=== PATIENT | male | born 1950 | race African-American/Black ===

== ENCOUNTER 2017-10-15 04:09 | Observation (INO) | payer OTHER ==
[2017-10-15] MEDS ORDERED: LORazepam 2 MG/ML SDV VIAL ONE (04:49)
[2017-10-15 04:53] VITALS: BMI 24.1
--- NOTE | 2017-10-15 04:54 | PDOC ---
History of Present Illness - History of Present Illness Initial Comments: 10/15/17 04:54 66 yo M with h/o recent CVA 1 month [employer] who arrival who presents with AMS. at bedside states that pt. has been behaving differently and recently seen at [facility] and told he had a stroke. Patient was advised to begin medication and have repeat CT HEAD, but has been non compliant. Patient currently non responsive and non verbal. endorses pt. tobacco use 1/2-1 ppd for past 30 + years. Denies alcohol intake. PCP Dr. Poncho Yeh <Johnnie Samuel - Last Filed: 10/15/17 05:01> <Sheri Champion - Last Filed: 10/15/17 05:16> - General Chief Complaint: Altered Mental Status Stated Complaint: AMS Time Seen by Provider: 10/15/17 04:34 Past History - Past Medical History Anemia: No Asthma: Yes (Pt is Albuterol IH) Cancer: No Cardiac Disorders: No COPD: No Diabetes: No GI Disorders: No Disorders: No HTN: No Hypercholesterolemia: No Kidney Stones: Yes (Pt had Left Kidney Surgery) Liver Disease: No Seizures: No Thyroid Disease: No - Surgical History Abdominal Surgery: No Appendectomy: No Cardiac Surgery: No Cholecystectomy: No Lung Surgery: No Neurologic Surgery: No Orthopedic Surgery: No - Reproductive History Testicular Surgery: No - Suicide/Smoking/Psychosocial Hx Smoking History: Current every day smoker Have you smoked in the past 12 months: Yes Number of Cigarettes Smoked Daily: 10 Information on smoking cessation initiated: No 'Breaking Loose' booklet given: 04/17/12 Hx Alcohol Use: No Drug/Substance Use Hx: No Substance Use Type: Alcohol, Cocaine Hx Substance Use Treatment: Yes <Johnnie Samuel - Last Filed: 10/15/17 05:01> <Sheri Champion - Last Filed: 10/15/17 05:16> - Past Medical History Allergies/Adverse Reactions: Allergies Allergy/AdvReac Type Severity Reaction Status Date / Time Penicillins Allergy Intermediate Itching Verified 10/15/17 04:43 Home Medications: Ambulatory Orders Albuterol Sulfate Inhaler - [Ventolin Hfa *Inhaler*] 1 - 2 inh IH QID PRN Citalopram Hydrobromide [Celexa] 20 mg PO DAILY 04/17/12 Quetiapine Fumarate [SEROquel] 50 mg PO BID 04/17/12 Risperidone [Risperdal] 1 mg PO BID 04/17/12 Review of Systems - Review of Systems Comments:: 10/15/17 04:54 GENERAL/CONSTITUTIONAL: No fever or chills. No weakness. HEAD, EYES, EARS, NOSE AND THROAT: No change in vision. No ear pain or discharge. No sore throat.- CARDIOVASCULAR: No chest pain or shortness of breath RESPIRATORY: No cough, wheezing, or hemoptysis. GASTROINTESTINAL: No nausea, vomiting, diarrhea or constipation. GENITOURINARY: No dysuria, frequency, or change in urination. MUSCULOSKELETAL: No joint or muscle swelling or pain. No neck or back pain. SKIN: No rash NEUROLOGIC: No headache, vertigo, loss of consciousness, or change in strength/ sensation. ENDOCRINE: No increased thirst. No abnormal weight change HEMATOLOGIC/LYMPHATIC: No anemia, easy bleeding, or history of blood clots. ALLERGIC/IMMUNOLOGIC: No hives or skin allergy. <Johnnie Samuel - Last Filed: 10/15/17 05:01> *Physical Exam - Vital Signs Last Vital Signs Temp Pulse Resp BP Pulse Ox 98.7 F 83 18 106/72 96 10/15/17 04:09 10/15/17 04:09 10/15/17 04:09 10/15/17 04:09 10/15/17 04:09 - Physical Exam Comments: 10/15/17 04:54 GENERAL: Awake, alert, and fully oriented, in no acute distress HEAD: No signs of trauma, normocephalic, atraumatic EYES: PERRLA, EOMI, sclera anicteric, conjunctiva clear ENT: Auricles normal inspection, hearing grossly normal, nares patent, oropharynx clear without exudates. Moist mucosa NECK: Normal ROM, supple, no lymphadenopathy, JVD, or masses LUNGS: No distress, speaks full sentences, clear to auscultation bilaterally HEART: Regular rate and rhythm, normal S1 and S2, no murmurs, rubs or gallops, peripheral pulses normal and equal bilaterally. ABDOMEN: Soft, nontender, normoactive bowel sounds. No guarding, no rebound. No masses EXTREMITIES : Normal inspection, Normal range of motion, no edema. No clubbing or cyanosis. NEUROLOGICAL: Cranial nerves II through XII grossly intact. Normal speech, normal gait, no focal sensorimotor deficits SKIN: Warm, Dry, normal turgor, no rashes or lesions noted. <Johnnie Samuel - Last Filed: 10/15/17 05:01> - Vital Signs Last Vital Signs Temp Pulse Resp BP Pulse Ox 98.7 F 83 18 106/72 96 10/15/17 04:09 10/15/17 04:09 10/15/17 04:09 10/15/17 04:09 10/15/17 04:09 <Sheri Champion - Last Filed: 10/15/17 05:16> ED Treatment Course - RADIOLOGY Radiology Studies Ordered: Category Date Time Status HEAD CT (STROKE) [CT] Stat CT Scan 10/15/17 04:17 Taken CHEST X-RAY PORTABLE* [RAD] Stat Radiology 10/15/17 05:12 Ordered <Sheri Champion - Last Filed: 10/15/17 05:16> Medical Decision Making - Medical Decision Making 10/15/17 05:16 Patient Name: MARK GIRON THIS IS A PRELIMINARY REPORT FROM [facility] DATE OF SERVICE: 2017-10-15 04:24:06 IMAGES: 228 EXAM: CT HEAD HISTORY: Altered mental status COMPARISON: None. FINDINGS: Brain parenchyma is normal in attenuation with no mass or hematoma. There is no midline shift. Zambrano and white matter differentiation is normal. There is some focal encephalomalacia in the left temporal lobe suggesting an old infarction Ventricles are normal. Sulci and extra-axial CSF spaces are normal. Intracranial vascular structures are normal in attenuation. There is no calvarial fracture. Paranasal sinuses are normally aerated. Sex: M Study Description: CT HEAD Modality: CT Location: [facility] Referring Physician: JOSE M LIN IMPRESSION: Encephalomalacia in the left temporal lobe suggesting old infarction THIS DOCUMENT HAS BEEN ELECTRONICALLY SIGNED <Sheri Champion - Last Filed: 10/15/17 05:16> *DC/Admit/Observation/Transfer <Johnnie Samuel - Last Filed: 10/15/17 05:01> <Sheri Champion - Last Filed: 10/15/17 05:16> - Referrals Referrals: Poncho Yeh [Primary Care Provider] - - Patient Instructions - Post Discharge Activity
[2017-10-15] MEDS ORDERED: diazePAM ACUDIAL 5-7.5-10 MG 1 EACH KIT RC ONE (05:00)
[2017-10-15] MEDS ORDERED: SODIUM CHLORIDE 0.9% 500 ML INFUS.BAG IV ONE (05:12)
--- NOTE | 2017-10-15 05:23 | PDOC ---
Attending Attestation - Resident Resident Name: Johnnie Samuel - ED Attending Attestation I have performed the following: I have examined & evaluated the patient, The case was reviewed & discussed with the resident, I agree w/resident's findings & plan - HPI HPI: 10/15/17 05:19 Pt comes with AMS; states that he has had a stroke in the past. 10/15/17 05:52 Pt's states that pt has a hx of drug abuse and mental illness. 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 Pt was not properly dressed for the sub- zero temps. states that she thinks he may have caught pneumonia. - Physicial Exam PE: 10/15/17 05:20 Pt began seizure in the ER after returning from CT scanner. (Head CT old findings only) Pt has a hx of seizure but also a hx of cocaine use. 10/15/17 05:53 Pt is sedated. He does open his eyes and he is able to respond somewhat. - Medical Decision Making 10/15/17 05:21 Pt AMS; seizure; will be admitted once labs are back. 10/15/17 06:59 Pt is more awake at this time. He is answering questions and following commmands. He recognizes his and speaks to her. Pt;s labs are coming normal, except for lactic acid of 13.5 which likely reflects the seizure that he had. Other chemistries were hemolyzed and we redrew and sent them. Day ER team will follow labs and admit patient to the hosptalist for AMS and seizure activity. 10/15/17 07:01
--- NOTE | 2017-10-15 05:36 | PDOC ---
NIH Stroke Scale - Last Known Well Date/Time & Onset Date Last Known Well: 10/14/17 Time Last Known Well: 18:00 - Initial Evaluation Level of consciousness: Not alert, but arousable with minimal stimulation Ask patient the month and their age: Answers both correctly Ask patient to open & close eyes; make fist and let go: Obeys both correctly Best gaze (horizontal eye movement): Normal Visual field testing: No visual field loss Facial paresis (Show teeth/raise eyebrows/close eyes tight): Normal symmetrical movement Motor Function: Left Arm: Normal Motor Function: Right Arm: Normal (extends arm 90 (or 45) degrees for 10 seconds without drift Motor Function: Left Leg: Normal (extends leg 30 degrees for 5 seconds without drift) Motor Function: Right Leg: Normal (extends leg 30 degrees for 5 seconds without drift) Limb Ataxia: Untestable (Joint fused or limb amputated), explain: Sensory(Use pinprick test arms,legs,trunk,face/side to side): Severe to total sensory loss Best language (Describe picture, name items, read sentences): No Aphasia Dysarthria (read several words): Mild to moderate slurring of words (pt given ativan for seizure) Extinction and Inattention: No abnormality - Total Score NIH Stroke Scale Score: 4
[2017-10-15 05:42] LABS: EOSINOPHIL 4.7 % (0-4.5); MCH 31.6 pg (25.7-33.7); MCHC 32.5 g/dl (32.0-35.9); MEAN CELL VOLUME 97.2 fl (80-96); MEAN PLT VOLUME 9.3 fl (7.5-11.1); NEUTROPHILS 43.6 % (42.8-82.8); PLATELET COUNT 223 K/MM3 (134-434); RDW 15.4 % (11.9-15.9)
[2017-10-15 05:52] LABS: URINE APPEARANCE SLCLOUDY; URINE BILIRUBIN NEGATIVE (NEGATIVE); URINE BLOOD 1+ (NEGATIVE); URINE COLOR LTYELLOW; URINE GLUCOSE (UA) NEGATIVE (NEGATIVE); URINE KETONE NEGATIVE (NEGATIVE); URINE LEUK ESTERASE NEGATIVE (NEGATIVE); URINE NITRITE NEGATIVE (NEGATIVE); URINE UROBILINOGEN NEGATIVE mg/dL (0.2-1.0)
[2017-10-15 06:00] LABS: URINE MARIJUANA THC NEGATIVE ng/ml (CUTOFF=50)
[2017-10-15 06:02] LABS: URINE PROTEIN 1+ (NEGATIVE)
[2017-10-15 06:03] LABS: URINE HYALINE CAST 4 /lpf; URINE MUCUS RARE; URINE RBC 19 /hpf (0-3); URINE WBC 3 /hpf (3-5)
[2017-10-15 06:57] LABS: INR 0.99 (0.82-1.09); PROTHROMBIN TIME (PATIENT) 11.2 SEC (9.98-11.88)
[2017-10-15] MEDS ORDERED: SODIUM CHLORIDE 0.9% 1000 ML INFUS.BAG IV ONE (07:48)
[2017-10-15 08:17] LABS: ALBUMIN 3.5 g/dl (3.4-5.0); ANION GAP 9 (8-16); CALCIUM 8.8 mg/dL (8.5-10.1); CO2 22 mmol/L (21-32); GLUCOSE,RANDOM 94 mg/dL (74-106)
[2017-10-15 08:22] LABS: ALK PHOS 102 U/L (45-117); BILIRUBIN,TOTAL 0.5 mg/dL (0.2-1.0); CREATININE 1.2 mg/dL (0.7-1.3); SGOT/AST 30 U/L (15-37); SGPT/ALT 36 U/L (12-78); TOT PROT 6.4 g/dl (6.4-8.2)
--- NOTE | 2017-10-15 09:07 | PDOC ---
*Physical Exam - Vital Signs Last Vital Signs Temp Pulse Resp BP Pulse Ox 98.7 F 80 18 120/64 98 10/15/17 04:09 10/15/17 08:00 10/15/17 08:00 10/15/17 08:00 10/15/17 08:00 - Physical Exam Neurologic: positive: Normal Response, Motor Strength 5/5 ED Treatment Course - LABORATORY CBC & Chemistry Diagram: 10/15/17 05:00 10/15/17 06:26 - ADDITIONAL ORDERS Additional order review: Laboratory Results 10/15/17 10/15/17 10/15/17 06:26 06:26 05:40 PT with INR 11.20 INR 0.99 PTT (Actin FS) Sodium 143 Potassium 4.5 Chloride 112 H Carbon Dioxide 22 Anion Gap 9 BUN 15 Creatinine 1.2 Creat Clearance w eGFR > 60 Random Glucose 94 D Lactic Acid Calcium 8.8 Total Bilirubin 0.5 D AST 30 D ALT 36 Alkaline Phosphatase 102 Creatine Kinase Troponin I Total Protein 6.4 Albumin 3.5 Urine Color Urine Appearance Urine pH Ur Specific [place] Urine Protein Urine Glucose (UA) Urine Ketones Urine Blood Urine Nitrite Urine Bilirubin Urine Urobilinogen Urine WBC (Auto) Urine RBC (Auto) Ur Epithelial Cells Hyaline Casts Urine Mucus Opiates Screen Negative Methadone Screen Negative Barbiturate Screen Negative Phencyclidine Screen Negative Ur Amphetamines Screen Negative MDMA (Ecstasy) Screen Negative Benzodiazepines Screen Negative Cocaine Screen Negative U Marijuana (THC) Screen Negative 10/15/17 10/15/17 10/15/17 05:40 05:00 05:00 PT with INR INR PTT (Actin FS) Sodium Cancelled Potassium Cancelled Chloride Cancelled Carbon Dioxide Cancelled Anion Gap Cancelled BUN Cancelled Creatinine Cancelled Creat Clearance w eGFR Cancelled Random Glucose Cancelled Lactic Acid 13.5 H* Calcium Cancelled Total Bilirubin Cancelled AST Cancelled ALT Cancelled Alkaline Phosphatase Cancelled Creatine Kinase Cancelled Troponin I Cancelled Total Protein Cancelled Albumin Cancelled Urine Color Ltyellow Urine Appearance Slcloudy Urine pH 5.0 Ur Specific [place] 1.013 Urine Protein 1+ H Urine Glucose (UA) Negative Urine Ketones Negative Urine Blood 1+ H Urine Nitrite Negative Urine Bilirubin Negative Urine Urobilinogen Negative Urine WBC (Auto) 3 Urine RBC (Auto) 19 Ur Epithelial Cells Rare Hyaline Casts 4 Urine Mucus Rare Opiates Screen Methadone Screen Barbiturate Screen Phencyclidine Screen Ur Amphetamines Screen MDMA (Ecstasy) Screen Benzodiazepines Screen Cocaine Screen U Marijuana (THC) Screen 10/15/17 10/15/17 05:00 05:00 PT with INR Cancelled INR Cancelled PTT (Actin FS) Cancelled Sodium Potassium Chloride Carbon Dioxide Anion Gap BUN Creatinine Creat Clearance w eGFR Random Glucose Lactic Acid Calcium Total Bilirubin AST ALT Alkaline Phosphatase Creatine Kinase Troponin I Total Protein Albumin Urine Color Urine Appearance Urine pH Ur Specific [place] Urine Protein Urine Glucose (UA) Urine Ketones Urine Blood Urine Nitrite Urine Bilirubin Urine Urobilinogen Urine WBC (Auto) Urine RBC (Auto) Ur Epithelial Cells Hyaline Casts Urine Mucus Opiates Screen Methadone Screen Barbiturate Screen Phencyclidine Screen Ur Amphetamines Screen MDMA (Ecstasy) Screen Benzodiazepines Screen Cocaine Screen U Marijuana (THC) Screen 10/15/17 05:00 RBC 4.72 MCV 97.2 H MCHC 32.5 RDW 15.4 MPV 9.3 Neutrophils % 43.6 Lymphocytes % 36.9 Monocytes % 13.8 H Eosinophils % 4.7 H Basophils % 1.0 - Medications Given in the ED: ED Medications Discontinued Medications Generic Name Dose Route Start Last Admin Trade Name Freq PRN Reason Stop Dose Admin Diazepam 10 mg 10/15/17 05:00 10/15/17 06:38 Diastat Rectal Gel - RC 10/15/17 05:01 Not Given ONCE ONE Lorazepam 2 mg 10/15/17 06:39 10/15/17 06:40 Ativan Injection - IVPUSH 10/15/17 06:40 2 mg ONCE ONE Administration Sodium Chloride 1,000 ml 10/15/17 05:12 10/15/17 06:00 Normal Saline - IV 10/15/17 05:13 1,000 ml ONCE ONE Administration Sodium Chloride 2,000 ml 10/15/17 07:48 10/15/17 08:21 Normal Saline - IV 10/15/17 07:49 2,000 ml ONCE ONE Administration Medical Decision Making - Medical Decision Making 10/15/17 09:07 Status post generalized tonic-clonic seizure with prolonged postictal period and elevated lactic. Patient improving but given elevated lactic and prolonged ictal. We'll observe overnight for hydration and further management *DC/Admit/Observation/Transfer Diagnosis at time of Disposition: Seizure - Discharge Dispostion Admit: Yes - Referrals Referrals: Poncho Yeh [Primary Care Provider] - - Patient Instructions - Post Discharge Activity
[2017-10-15] MEDS ORDERED: levETIRAcetam 500 MG/5 ML INJECTION VIAL IVPB ONE ×2 (09:18→09:25)
--- NOTE | 2017-10-15 12:23 | CONSULT ---
Consult - text type - Consultation Consultation Note: Neurology History of Present Illness The patient is a 66 y/o M who presented with AMS; he was accompanied by his who stated that he has had a stroke in the past. Pt's stated that the pt has a hx of drug abuse and mental illness. 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 Pt was not properly dressed for the sub-zero temps. In the ER , he had a GTC with lactic acid of 13.5. He was given Ativan which resolved symptoms. He was admitted for further evaluation and management. He was also loaded with Keppra 1 g according to the emergency room physician. he should be continued on Keppra 500 mg twice a day. I will also check an MRI of the brain to rule out stroke although it seems that his presentation is more consistent with seizure. Medications as listed - Physicial Exam PE: Gen: Awake, alert, responds to questions appropriately Card: RRR, nml S1,S2 Resp: Normal symmetric effort, lungs clear to auscultation Abdomen: Soft, nontender, bowel sounds active Musculoskeletal: Adequate range of motion without significant deformity Neuro Head atraumatic and normocephalic CN: PERRL, EOMI intact, no apparent facial droop, no abnormalities in facial sensation, palate elevates, uvula and tongue midline Motor: Strength intact to confrontation in upper and lower extremities. Tone normal throughout Sensory: Intact to Temperature, light touch, and pinprick in all extremities Reflexes: 2+ biceps, brachioradialis, patellar, achillies Coordination: Intact on [id number] testing Gait: Unremarkable, no ataxia CBCD WBC 9.0 K/mm3 (4.0-10.0) D 10/15/17 05:00 RBC 4.72 M/mm3 (4.00-5.60) 10/15/17 05:00 Hgb 14.9 GM/dL (11.7-16.9) 10/15/17 05:00 Hct 45.9 % (35.4-49) 10/15/17 05:00 MCV 97.2 fl (80-96) H 10/15/17 05:00 MCHC 32.5 g/dl (32.0-35.9) 10/15/17 05:00 RDW 15.4 % (11.9-15.9) 10/15/17 05:00 Plt Count 223 K/MM3 (134-434) 10/15/17 05:00 MPV 9.3 fl (7.5-11.1) 10/15/17 05:00 CMP Sodium 143 mmol/L (136-145) 10/15/17 06:26 Potassium 4.5 mmol/L (3.5-5.1) 10/15/17 06:26 Chloride 112 mmol/L (98-107) H 10/15/17 06:26 Carbon Dioxide 22 mmol/L (21-32) 10/15/17 06:26 Anion Gap 9 (8-16) 10/15/17 06:26 BUN 15 mg/dL (7-18) 10/15/17 06:26 Creatinine 1.2 mg/dL (0.7-1.3) 10/15/17 06:26 Creat Clearance w eGFR > 60 (>60) 10/15/17 06:26 Calcium 8.8 mg/dL (8.5-10.1) 10/15/17 06:26 Total Bilirubin 0.5 mg/dL (0.2-1.0) D 10/15/17 06:26 AST 30 U/L (15-37) D 10/15/17 06:26 ALT 36 U/L (12-78) 10/15/17 06:26 Alkaline Phosphatase 102 U/L (45-117) 10/15/17 06:26 Total Protein 6.4 g/dl (6.4-8.2) 10/15/17 06:26 Albumin 3.5 g/dl (3.4-5.0) 10/15/17 06:26 CT head reviewed and without acute changes - Medical Decision Making 66 y/o M who presented with AMS; he was accompanied by his who stated that he has had a stroke in the past. Pt's stated that the pt has a hx of drug abuse and mental illness. 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 Pt was not properly dressed for the sub-zero temps. In the ER, he had a GTC with lactic acid of 13.5. He was given Ativan which resolved symptoms. He was admitted for further evaluation and management. He was also loaded with Keppra 1 g according to the emergency room physician. he should be continued on Keppra 500 mg twice a day. I will also check an MRI of the brain to rule out stroke although it seems that his presentation is more consistent with seizure. Conitine close monitoring, seizure precautions. Monitor lytes and for infection. Continue IV/PO hydration.
--- NOTE | 2017-10-15 13:55 | HOSP ---
Subjective - Review of Symptoms Events since last encounter: Requested by RN to examine the patient because of R arm swelling likely due to IV infiltration. He's AAO x place and person not time and stated his arm swelling has been months and chronic. Denies fever, chills, warmth, pain, limited ROM, lesion, trauma, parethesia and weakness. Physical Examination Vital Signs: Vital Signs Temperature 98.7 F 10/15/17 04:09 Pulse Rate 85 10/15/17 10:15 Respiratory Rate 18 10/15/17 10:15 Blood Pressure 130/71 10/15/17 10:15 O2 Sat by Pulse Oximetry (%) 98 10/15/17 10:15 Constitutional: Yes: Calm Extremities: Yes: Other (Diffusely swollen and hard R arm. Sensation intact, strength 5/5, radial pulse +2, no erythema, no warmth.) Labs: CBC, BMP 10/15/17 05:00 10/15/17 06:26 Hospitalist Encounter Assessment: 66 yo M found to have swollen, enlarged, and hard R arm. R arm swelling, chronic - Unknown cause * unlikely due to IV infiltration * radial pulse present, full strength, sensation intact. full ROM - Case discussed with Dr. Stone, will do the following: * U/S right arm * vascular consult - No blood draw in the R arm [facility] PGY2 Pager: [phone] Visit type - Emergency Visit Emergency Visit: No - New Patient This patient is new to me today: Yes Date on this admission: 10/15/17 - Critical Care Critical Care patient: No
[2017-10-15] MEDS ORDERED: ACETAMINOPHEN 325 MG TABLET (FP) PO PRN (14:02)
[2017-10-15] MEDS ORDERED: ALBUTEROL SO4 2.5/IPRATROPIUM 0.5 INH SOL 3 ML VIAL.NEB. NEB PRN (14:02)
--- NOTE | 2017-10-15 14:47 | EKG ---
Test Reason : Blood Pressure : / mmHG Vent. Rate : 075 BPM Atrial Rate : 075 BPM P-R Int : 184 ms QRS Dur : 088 ms QT Int : 356 ms P-R-T Axes : 026 004 023 degrees QTc Int : 397 ms NORMAL SINUS RHYTHM NORMAL ECG WHEN COMPARED WITH ECG OF 15-OCT-2017 05:36, NO SIGNIFICANT CHANGE WAS FOUND Confirmed by AYESHA PATTERSON MD ([id number]) on 10/15/2017 2:47:26 PM Referred By: Confirmed By:AYESHA PATTERSON MD
--- NOTE | 2017-10-15 14:54 | EKG ---
Test Reason : Blood Pressure : / mmHG Vent. Rate : 091 BPM Atrial Rate : 091 BPM P-R Int : 176 ms QRS Dur : 084 ms QT Int : 360 ms P-R-T Axes : 025 006 035 degrees QTc Int : 442 ms NORMAL SINUS RHYTHM NORMAL ECG NO PREVIOUS ECGS AVAILABLE Confirmed by AYESHA PATTERSON MD ([id number]) on 10/15/2017 2:54:34 PM Referred By: Confirmed By:AYESHA PATTERSON MD
[2017-10-15] MEDS: NICOTINE 21 MG/24 HOURS TOPICAL PATCH TD SCH (16:02)
--- NOTE | 2017-10-15 17:24 | CONSULT ---
Admitting History and Physical - Primary Care Physician PCP: Juanita Stone - Admission History of Present Illness: Per emr/neurology: 66 y/o M who presented with AMS; he was accompanied by his who stated that he has had a stroke in the past. Pt's stated that the pt has a hx of drug abuse and mental illness. 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 Pt was not properly dressed for the sub-zero temps. In the ER, he had a GTC with lactic acid of 13.5. He was given Ativan which resolved symptoms. He was admitted for further evaluation and management. He was also loaded with Keppra 1 g according to the emergency room physician. he should be continued on Keppra 500 mg twice a day. I will also check an MRI of the brain to rule out stroke although it seems that his presentation is more consistent with seizure. Conitine close monitoring, seizure precautions. Monitor lytes and for infection. Continue IV/PO hydration. History Source: Medical Record Limitations to Obtaining History: Clinical Condition - Smoking History Smoking history: Current every day smoker Have you smoked in the past 12 months: Yes Aproximately how many cigarettes per day: 10 - Alcohol/Substance Use Hx Alcohol Use: Yes History - Admission Reason For Visit: SEIZURE - General Mental Status: Alert and Oriented (grossly.), Awake and Alert, Able to Follow Commands, Vague, Intermittently Confused (?) Attention: Intact Ability to Follow Directions: Fair Head/Neck Control: Good - Hearing Hearing: Normal Speech Evaluation - Communication Primary Language: RWANDAN Communication: Yes: Within Normal Limits, Simple Responses - Speech Production Able to Make Needs Known: Yes: WNL Intelligibility: Yes: WNL - Speech Characteristics Voice Loudness: Normal Voice Pitch: Yes: Normal Voice Phonatory-based Quality: Yes: Normal Speech Pattern: Normal Speech Clarity: < 100% Nasal Resonance: Normal Articulation: Yes: Precise - Language/Auditory Comprehension Follows: Yes: 1 Stage Simple Commands - Language/Verbal Expression Able to Communicate Wants and Needs: Yes: WNL Functional Communication Status: Yes: WNL - Swallow Evaluation/Bedside Assessment Current Nutritional Intake: Regular, Thin Liquids Oral Secretions: Yes: WFL Dentition: Yes: Edentulous Facial Symmetry at Rest: Symmetrical Facial Symmetry on Retraction: Symmetrical Against Resistance Opening: Normal Against Resistance Closing: Normal Pucker Lips: Normal Lingual Movement: Normal, Symmetric Lingual Speed of Movement: Normal Lingual Movement Strgth Against Opposition: Normal Lingual Movement Characteristics: Normal Velopharyngeal Movement: Normal Laryngeal Elevation: WFL Laryngeal Movement: Able to Palpate Rate of Intake: WFL Bolus Size: WFL Chewing: WFL (edentulous. fair mastication) Oral Prep Time: WFL A-P Transit: WFL Pocketing: None Timing of Swallow: WFL Coughing/Throat Clear: No Change in Voice: No Recommendations - Speech Evaluation, Impression/Plan Impression: edentulous. Swallowing overtly intact. - Dysphagia Impressions/Plan Dysphagia Impressions: Minimal Impairment *Silent aspiration: cannot be R/O at bedside Dysphagia Treatment Plan: Elevate HOB during feed - Recommendations Diet Consistency: Regular (soft) Medication Administration: Whole with water Liquids: Thin Liquids
[2017-10-15 18:52] LABS: URINE LEUK ESTERASE NEGATIVE (NEGATIVE)
--- NOTE | 2017-10-15 19:40 | HP ---
Admitting History and Physical - Primary Care Physician PCP: Juanita Stone - Admission Chief Complaint: SEIZURE/SYNCOPE History of Present Illness: The patient is a 66 y/o M who presented with AMS; he was accompanied by his who stated that he has had a stroke in the past. Pt's stated that the pt has a hx of drug abuse and mental illness. 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 Pt was not properly dressed for the sub-zero temps. In the ER , he had a GTC with lactic acid of 13.5. He was given Ativan which resolved symptoms. He was admitted for further evaluation and management. He was also loaded with Keppra 1 g according to the emergency room physician. he should be continued on Keppra 500 mg twice a day. I will also check an MRI of the brain to rule out stroke although it seems that his presentation is more consistent with seizure. History Source: Patient - Past Medical History [employer]: Yes: Seizure - Smoking History Smoking history: Current every day smoker Have you smoked in the past 12 months: Yes Aproximately how many cigarettes per day: 10 - Alcohol/Substance Use Hx Alcohol Use: Yes Home Medications - Allergies Allergies/Adverse Reactions: Allergies Allergy/AdvReac Type Severity Reaction Status Date / Time Penicillins Allergy Intermediate Itching Verified 10/15/17 04:43 - Home Medications Home Medications: Ambulatory Orders Albuterol Sulfate Inhaler - [Ventolin Hfa Inhaler -] 1 - 2 inh PO QID PRN Review of Systems - Review of Systems Constitutional: reports: Weakness Eyes: reports: No Symptoms HENT: reports: No Symptoms Neck: reports: No Symptoms Cardiovascular: reports: No Symptoms Respiratory: reports: No Symptoms Gastrointestinal: reports: No Symptoms Genitourinary: reports: No Symptoms Musculoskeletal: reports: No Symptoms Integumentary: reports: No Symptoms Neurological: reports: Pre-Existing Deficit Endocrine: reports: No Symptoms Hematology/Lymphatic: reports: No Symptoms Psychiatric: reports: Anxiety Physical Examination Vital Signs: Vital Signs Temperature 97.4 F L 10/15/17 14:34 Pulse Rate 83 10/15/17 14:34 Respiratory Rate 20 10/15/17 14:34 Blood Pressure 120/75 10/15/17 14:34 O2 Sat by Pulse Oximetry (%) 98 12/11/17 10:15 Constitutional: Yes: Mild Distress Eyes: Yes: WNL HENT: Yes: WNL Neck: Yes: WNL Cardiovascular: Yes: WNL Respiratory: Yes: WNL Gastrointestinal: Yes: WNL Renal/: Yes: WNL Musculoskeletal: Yes: WNL Extremities: Yes: WNL Edema: Yes Edema: LUE: 1+, RUE: 1+ Peripheral Pulses WNL: Yes Integumentary: Yes: WNL Wound/Incision: Yes: Clean/Dry Neurological: Yes: Seizure ...Motor Strength: LLE, RLE Psychiatric: Yes: Other Labs: CBC, BMP 10/15/17 05:00 10/15/17 06:26 Problem List - Problems (1) Post traumatic stress disorder Code(s): F43.10 - POST-TRAUMATIC STRESS DISORDER, UNSPECIFIED (2) Nicotine dependence Code(s): F17.200 - NICOTINE DEPENDENCE, UNSPECIFIED, UNCOMPLICATED Qualifiers: Nicotine product type: cigarettes (3) Seizure Code(s): R56.9 - UNSPECIFIED CONVULSIONS Assessment/Plan SEIZURE AND NEURO PRECAUTIONS NEUROLOGY EVAL LABS REVIEWED SWALLOW EVAL NICOTINE PATCH FALL RISKS PT EVAL
[2017-10-15] MEDS: levETIRAcetam 500 MG TABLET (FP) PO SCH (22:47)
[2017-10-16 08:15] LABS: CHOLESTEROL 127 mg/dL (50-200)
[2017-10-16] MEDS: NICOTINE 21 MG/24 HOURS TOPICAL PATCH TD SCH (09:08)
[2017-10-16] MEDS: levETIRAcetam 500 MG TABLET (FP) PO SCH (09:08)
--- NOTE | 2017-10-16 09:49 | PN ---
Progress Note (short form) - Note Progress Note: Neurology History of Present Illness The patient is a 66 y/o M who presented with AMS; he was accompanied by his who stated that he has had a stroke in the past. Pt's stated that the pt has a hx of drug abuse and mental illness. 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 Pt was not properly dressed for the sub-zero temps. In the ER , he had a GTC with lactic acid of 13.5. He was given Ativan which resolved symptoms. He was admitted for further evaluation and management. He was also loaded with Keppra 1 g according to the emergency room physician. he should be continued on Keppra 500 mg twice a day. Awaiting MRI of the brain to rule out stroke although it seems that his presentation is more consistent with seizure. Patient anxious to go home and inquiring about competion of work up. Active Medications Acetaminophen (Tylenol -) 650 mg PO Q6H PRN PRN Reason: FEVER OR PAIN Albuterol/Ipratropium (Duoneb -) 1 amp NEB Q6H PRN PRN Reason: SHORTNESS OF BREATH Levetiracetam (Keppra -) 500 mg PO BID [facility] Last Admin: 10/16/17 09:08 Dose: 500 mg Lorazepam (Ativan Injection -) 2 mg IM Q12H PRN PRN Reason: WITHDRAWAL(CONT SUBST) Nicotine (Nicoderm Patch -) 21 mg TD DAILY [facility] Last Admin: 10/16/17 09:08 Dose: 21 mg - Physicial Exam PE: Gen: Awake, alert, responds to questions appropriately Card: RRR, nml S1,S2 Resp: Normal symmetric effort, lungs clear to auscultation Abdomen: Soft, nontender, bowel sounds active Musculoskeletal: Adequate range of motion without significant deformity Neuro Head atraumatic and normocephalic CN: PERRL, EOMI intact, no apparent facial droop, no abnormalities in facial sensation, palate elevates, uvula and tongue midline Motor: Strength intact to confrontation in upper and lower extremities. Tone normal throughout Sensory: Intact to Temperature, light touch, and pinprick in all extremities Reflexes: 2+ biceps, brachioradialis, patellar, achillies Coordination: Intact on [id number] testing Gait: Unremarkable, no ataxia CBCD WBC 9.0 K/mm3 (4.0-10.0) D 10/15/17 05:00 RBC 4.72 M/mm3 (4.00-5.60) 10/15/17 05:00 Hgb 14.9 GM/dL (11.7-16.9) 10/15/17 05:00 Hct 45.9 % (35.4-49) 10/15/17 05:00 MCV 97.2 fl (80-96) H 10/15/17 05:00 MCHC 32.5 g/dl (32.0-35.9) 10/15/17 05:00 RDW 15.4 % (11.9-15.9) 10/15/17 05:00 Plt Count 223 K/MM3 (134-434) 10/15/17 05:00 MPV 9.3 fl (7.5-11.1) 10/15/17 05:00 CMP Sodium 143 mmol/L (136-145) 10/15/17 06:26 Potassium 4.5 mmol/L (3.5-5.1) 10/15/17 06:26 Chloride 112 mmol/L (98-107) H 10/15/17 06:26 Carbon Dioxide 22 mmol/L (21-32) 10/15/17 06:26 Anion Gap 9 (8-16) 10/15/17 06:26 BUN 15 mg/dL (7-18) 10/15/17 06:26 Creatinine 1.2 mg/dL (0.7-1.3) 10/15/17 06:26 Creat Clearance w eGFR > 60 (>60) 10/15/17 06:26 Calcium 8.8 mg/dL (8.5-10.1) 10/15/17 06:26 Total Bilirubin 0.5 mg/dL (0.2-1.0) D 10/15/17 06:26 AST 30 U/L (15-37) D 10/15/17 06:26 ALT 36 U/L (12-78) 10/15/17 06:26 Alkaline Phosphatase 102 U/L (45-117) 10/15/17 06:26 Total Protein 6.4 g/dl (6.4-8.2) 10/15/17 06:26 Albumin 3.5 g/dl (3.4-5.0) 10/15/17 06:26 CT head reviewed and without acute changes - Medical Decision Making 66 y/o M who presented with AMS; he was accompanied by his who stated that he has had a stroke in the past. Pt's stated that the pt has a hx of drug abuse and mental illness. 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 Pt was not properly dressed for the sub-zero temps. In the ER, he had a GTC with lactic acid of 13.5. He was given Ativan which resolved symptoms. He was admitted for further evaluation and management. He was also loaded with Keppra 1 g according to the emergency room physician. he should be continued on Keppra 500 mg twice a day. MRI of the brain to rule out stroke although it seems that his presentation is more consistent with seizure. Conitine close monitoring, seizure precautions. Monitor lytes and for infection. Continue IV/PO hydration. Fall precautions, physical therapy for ambulation.
[2017-10-16 15:21] VITALS: PULSE 74
--- NOTE | 2017-10-16 15:39 | PN ---
Progress Note, Physician Chief Complaint: awake family bedside events and notes reviewed - Current Medication List Current Medications: Active Medications Acetaminophen (Tylenol -) 650 mg PO Q6H PRN PRN Reason: FEVER OR PAIN Albuterol/Ipratropium (Duoneb -) 1 amp NEB Q6H PRN PRN Reason: SHORTNESS OF BREATH Levetiracetam (Keppra -) 500 mg PO BID [facility] Last Admin: 10/16/17 09:08 Dose: 500 mg Lorazepam (Ativan Injection -) 2 mg IM Q12H PRN PRN Reason: WITHDRAWAL(CONT SUBST) Nicotine (Nicoderm Patch -) 21 mg TD DAILY [facility] Last Admin: 10/16/17 09:08 Dose: 21 mg - Objective Vital Signs: Vital Signs Temperature 98.2 F 10/16/17 14:19 Pulse Rate 74 10/16/17 14:19 Respiratory Rate 22 10/16/17 14:19 Blood Pressure 119/62 10/16/17 14:19 O2 Sat by Pulse Oximetry (%) 96 10/16/17 06:00 Constitutional: Yes: No Distress Eyes: Yes: WNL HENT: Yes: WNL Neck: Yes: WNL Cardiovascular: Yes: WNL Respiratory: Yes: WNL Gastrointestinal: Yes: WNL Genitourinary: Yes: WNL Musculoskeletal: Yes: WNL Extremities: Yes: WNL Edema: No Peripheral Pulses WNL: Yes Integumentary: Yes: WNL Wound/Incision: Yes: Clean/Dry Neurological: Yes: WNL ...Motor Strength: WNL Psychiatric: Yes: Agitated Labs: CBC, BMP 10/15/17 05:00 10/15/17 06:26 INR, PTT INR 0.99 (0.82-1.09) 10/15/17 06:26 Problem List - Problems (1) Post traumatic stress disorder Code(s): F43.10 - POST-TRAUMATIC STRESS DISORDER, UNSPECIFIED (2) Nicotine dependence Code(s): F17.200 - NICOTINE DEPENDENCE, UNSPECIFIED, UNCOMPLICATED Qualifiers: Nicotine product type: cigarettes (3) Seizure Code(s): R56.9 - UNSPECIFIED CONVULSIONS Assessment/Plan SEIZURE AND NEURO PRECAUTIONS NEUROLOGY EVAL LABS REVIEWED SWALLOW EVAL NICOTINE PATCH FALL RISKS PT EVAL MRI BRAIN PENDING
[2017-10-16 19:30] VITALS: BP 98/49; TEMP 97.4
--- NOTE | 2017-10-16 20:34 | HOSP ---
Subjective - Review of Symptoms Subjective: Saw pt. for pt. wanting to sign AMA Pt. iS [id number] told patinets the risks of leaving including stroke, seizure and and told him reccomended him to stay Dr. Sood has been notified Pt. states he understood risks and wanted to leave anyway to follow with PCP Physical Examination Vital Signs: Vital Signs Temperature 97.4 F L 10/16/17 18:05 Pulse Rate 74 10/16/17 18:05 Respiratory Rate 20 10/16/17 18:05 Blood Pressure 98/49 10/16/17 18:05 O2 Sat by Pulse Oximetry (%) 96 10/16/17 06:00 Labs: CBC, BMP 10/15/17 05:00 10/15/17 06:26
== END 2017-10-16 20:52 | disposition left against medical advice (07) ==
LOC: JER 04:09 → JERBED 09:21 → J5S 12:16
PROVIDERS: ADMIT Family Medicine; ATTEND Family Medicine
DX: R56.9 Unspecified convulsions (principal); F17.200 Nicotine dependence, unspecified, uncomplicated; Z86.73 Personal history of transient ischemic attack (TIA), and cerebral infarction without residual deficits
CPT/HCPCS: 36415; 70450-TC; 70551-TC; 71010-TC; 80053; 80061; 80307; 81003; 81015; 83605; 83721; 85025; 85610; 87040; 93005; 93010; 93971; 97116-GP; 97161-GP; 99285-25; G0378

== ENCOUNTER 2021-04-01 18:04 | Inpatient (IN) | payer BC, OTHER ==
[2021-04-01 19:18] LABS: BASO % 0.2 % (0-2.0); HEMATOCRIT 33.5 % (35.4-49); HEMOGLOBIN 11.1 GM/dL (11.7-16.9); LYMPH % 3.4 % (8-40); MCH 30.8 pg (25.7-33.7); MEAN CELL VOLUME 93.5 fl (80-96); MEAN PLT VOLUME 8.2 fl (7.5-11.1); MONO % 6.2 % (3.8-10.2); NEUT % 90.2 % (42.8-82.8); PLATELET COUNT 339 K/MM3 (134-434); RBC 3.59 M/mm3 (4.00-5.60); WHITE BLOOD COUNT 14.3 K/mm3 (4.0-10.0)
[2021-04-01 19:41] LABS: CHLORIDE 112 mmol/L (98-107); SODIUM 142 mmol/L (136-145)
[2021-04-01 19:43] LABS: CALCIUM 7.8 mg/dL (8.5-10.1)
[2021-04-01] MEDS ORDERED: AZITHROMYCIN 500 MG TABLET PO ONE (19:43)
[2021-04-01] MEDS ORDERED: CEFTRIAXONE 1,000 MG in DEXTROSE 5%-WATER - 50 ML IVPB ONE (19:43)
[2021-04-01 19:44] LABS: ALBUMIN 2.6 g/dl (3.4-5.0); ANION GAP 5 MMOL/L (8-16); BLOOD UREA NITROGEN 16.6 mg/dL (7-18); CO2 25 mmol/L (21-32); GLUCOSE,RANDOM 114 mg/dL (74-106)
[2021-04-01 19:47] LABS: CREATININE 0.9 mg/dL (0.55-1.3); SGOT/AST 43 U/L (15-37); SGPT/ALT 55 U/L (13-61)
[2021-04-01 19:49] LABS: BILIRUBIN,TOTAL 0.5 mg/dL (0.2-1); TOT PROT 5.7 g/dl (6.4-8.2)
[2021-04-01 19:50] LABS: ALK PHOS 84 U/L (45-117)
[2021-04-01 19:52] LABS: N-TERMINAL BNP 111.4 pg/ml (5-125)
[2021-04-01] MEDS ORDERED: CEFTRIAXONE 1 GM/50 ML BAG ONE (20:27)
[2021-04-01] MEDS ORDERED: AZITHROMYCIN IVPB 500 MG/250 ML BAG IVPB ONE (20:27)
[2021-04-01 20:43] LABS: ANISOCYTOSIS 1+; MACROCYTOSIS 0; PLATELET ESTIMATE NORMAL
[2021-04-01 20:51] LABS: PH,URINE 6.5 (5.0-8.0); URINE APPEARANCE CLEAR; URINE BILIRUBIN NEGATIVE (NEGATIVE); URINE COLOR YELLOW; URINE GLUCOSE (UA) NEGATIVE (NEGATIVE); URINE KETONE NEGATIVE (NEGATIVE); URINE LEUK ESTERASE NEGATIVE (NEGATIVE); URINE NITRITE NEGATIVE (NEGATIVE); URINE PROTEIN NEGATIVE (NEGATIVE); URINE UROBILINOGEN 0.2 mg/dL (0.2-1.0)
[2021-04-02 01:00] LABS: BLOOD UREA NITROGEN 16.5 mg/dL (7-18); CALCIUM 7.4 mg/dL (8.5-10.1)
[2021-04-02 02:50] VITALS: BMI 29.2
[2021-04-02 06:40] VITALS: BP 128/74; PULSE 76; TEMP 98.9
[2021-04-02 07:57] LABS: CHLORIDE 110 mmol/L (98-107); SODIUM 144 mmol/L (136-145)
[2021-04-02 08:03] LABS: CALCIUM 7.4 mg/dL (8.5-10.1)
[2021-04-02 08:04] LABS: ALBUMIN 2.4 g/dl (3.4-5.0); ANION GAP 5 MMOL/L (8-16); CO2 28 mmol/L (21-32); GLUCOSE,RANDOM 82 mg/dL (74-106); MAGNESIUM 2.2 mg/dL (1.8-2.4)
[2021-04-02 08:05] LABS: BASO % 0.4 % (0-2.0); EOS % 0.1 % (0-4.5); HEMATOCRIT 30.6 % (35.4-49); HEMOGLOBIN 10.5 GM/dL (11.7-16.9); LYMPH % 11.3 % (8-40); MCH 31.5 pg (25.7-33.7); MCHC 34.3 g/dl (32.0-35.9); MEAN CELL VOLUME 91.9 fl (80-96); MEAN PLT VOLUME 7.9 fl (7.5-11.1); NEUT % 76.2 % (42.8-82.8); PLATELET COUNT 317 K/MM3 (134-434); RBC 3.33 M/mm3 (4.00-5.60); RDW 16.5 % (11.9-15.9); WHITE BLOOD COUNT 16.4 K/mm3 (4.0-10.0)
[2021-04-02 08:07] LABS: SGOT/AST 23 U/L (15-37); SGPT/ALT 43 U/L (13-61)
[2021-04-02 08:09] LABS: BILIRUBIN,TOTAL 0.3 mg/dL (0.2-1); TOT PROT 4.9 g/dl (6.4-8.2)
[2021-04-02 08:10] LABS: ALK PHOS 74 U/L (45-117)
[2021-04-02] MEDS ORDERED: ALBUTEROL SO4 HFA INHALER IH PRN (08:10)
[2021-04-02] MEDS ORDERED: levETIRAcetam 500 MG TABLET (FP) PO SCH (10:00)
[2021-04-02] MEDS ORDERED: PANTOPRAZOLE 40 MG TABLET PO SCH (10:00)
[2021-04-02 11:14] LABS: ANISOCYTOSIS 1+; MACROCYTOSIS 0; OVALOCYTE 1+; PLATELET ESTIMATE NORMAL
[2021-04-02] MEDS ORDERED: CEFTRIAXONE 1,000 MG in DEXTROSE 5%-WATER - 50 ML IVPB SCH (20:00)
[2021-04-02] MEDS ORDERED: AZITHROMYCIN IVPB 500 MG/250 ML BAG IVPB SCH (21:00)
== END 2021-04-02 12:21 | disposition left against medical advice (07) | DRG 195 ==
LOC: JER 18:04 → JERBED 22:02 → J7W 04-02 01:37
PROVIDERS: ADMIT Hospitalist; ATTEND Family Medicine
DX: J18.9 Pneumonia, unspecified organism (principal); J44.9 Chronic obstructive pulmonary disease, unspecified; R60.0 Localized edema; F43.10 Post-traumatic stress disorder, unspecified; F17.210 Nicotine dependence, cigarettes, uncomplicated; Z86.73 Personal history of transient ischemic attack (TIA), and cerebral infarction without residual deficits; R60.9 Edema, unspecified; R56.9 Unspecified convulsions
CPT/HCPCS: 36415; 71045-TC-FY; 71260-TC; 74177-TC; 80048; 80053; 81003; 82550; 82553; 83735; 83880; 84484; 85025; 93005; 93010; 93970-TC; 99285-25; C9803; Q9967; U0003; U0005